=== PATIENT | male | born 1940 | race Caucasian/White ===

== ENCOUNTER → 2017-11-11 | Outpatient (CLI) | payer MEDICARE ==
--- NOTE | 2017-11-13 14:00 | NM ---
EXAMINATION TYPE: NM DatScan Brain SPECT DATE OF EXAM: 11/11/2017 COMPARISON: NONE HISTORY: Tremors TECHNIQUE: 10 drops of Lugol's solution was administered 1 hour prior to injection as a thyroid bloc zamzam agent. After the administration of 4.22 mCi I-123 Ioflupane DaTscan. Images obtained 3 hours p ost injection. SPECT images of the brain were acquired with axial and coronal reconstructions. FINDINGS: The axial SPECT images demonstrate increased background activity and reduced activity withi n the bilateral striata. Findings appear fairly symmetric. IMPRESSION: Abnormal appearance highly suggestive of idiopathic Parkinson's disease or Parkinsonian s yndrome.
== END | disposition home or self-care (01) ==
LOC: RADNMMAIN 10:36
PROVIDERS: ATTEND Psychiatry & Neurology Neurology
DX: R90.89 Other abnormal findings on diagnostic imaging of central nervous system (principal); G25.0 Essential tremor
CPT/HCPCS: 78607; A9584

== ENCOUNTER → 2020-11-15 | Outpatient (CLI) | payer MEDICARE ==
--- NOTE | 2020-11-15 20:13 | FL ---
EXAMINATION TYPE: FL barium swallow DATE OF EXAM: 11/15/2020 CLINICAL INDICATION: 80-year-old male R13.10, dysphasia. Sensation of food stuck in the throat for 4 to 5 months. Gagging episodes. COMPARISON: None Total Fluoroscopy Time: 3 minutes 18 seconds. 59 images obtained. FINDINGS: The swallowing mechanism is normal. There is moderate thickening of the cricopharyngeus causing promi nent impression onto the posterior wall of the cervical esophagus. Otherwise, the hypopharyngeal bk eddie is maintained. Thoracic portion has a normal course and caliber. Only mild tertiary peristalsis is encountered. The mucosa is normal and no persistent filling defect is encountered. There is a moderate-sized hiatal hernia. Gastroesophageal reflux could not be elicited with Valsalva or positional maneuvers. IMPRESSION: 1. Moderate CP hypertrophy. Correlate as to if this could be contributing to the patient's symptoms. Consider GI referral for direct visualization. 2. Moderate-sized hiatal hernia. Unable to elicit gastroesophageal reflux during the course of the ex am.
== END ==
LOC: RADUSWWP 10:00
PROVIDERS: ATTEND Family Medicine
DX: K44.9 Diaphragmatic hernia without obstruction or gangrene (principal); K21.9 Gastro-esophageal reflux disease without esophagitis
CPT/HCPCS: 74220

== ENCOUNTER 2020-12-17 10:01 | Day surgery (SDC) | payer MEDICARE ==
[2020-12-16 11:58] VITALS: BMI 22.8
[~2020-12-17 10:01] MED LIST: LACTATED RINGERS 1,000 ML IV SCH; LIDOCAINE 1% (10MG/ML) FOR IV START INTRADERMA PRN
[2020-12-17 10:38] VITALS: RESP 16; TEMP 97
[2020-12-17] MEDS ORDERED: PROPOFOL 10 MG/ML 20 ML VIAL IV ONE (12:25)
--- NOTE | 2020-12-17 12:42 | P.PCN ---
Date of Procedure: 12/17/20 Description of Procedure: BRIEF HISTORY: Patient is a 80-year-old male presenting for outpatient esophagogastroduodenoscopy for evaluation of difficulty swallowing and esophageal dysphagia. Patient reports intermittent symptoms over the past few months. Predominantly to solids. No prior episodes. No prior EGD. Currently not on any medications for reflux. He does feel his symptoms have improved. PROCEDURE PERFORMED: Esophagogastroduodenoscopy with biopsy. PREOPERATIVE DIAGNOSIS: Difficulty swallowing, esophageal dysphagia. ESTIMATED BLOOD LOSS: Minimal. IV sedation per anesthesia. PROCEDURE: After informed consent was obtained, the patient was brought into the endoscopy unit. IV sedation was administered by Anesthesia under continuous monitoring. Initially the Olympus GIF-190 video endoscope was inserted into the mouth. Esophagus intubated without any difficulty. It was gradually advanced into the stomach and duodenum and carefully examined. The bulb and the second part of the duodenum appeared normal, with biopsies taken. The scope at this time was wit hdrawn to the stomach, adequately insufflated with air, and upon careful examination, mucosa of the antrum, body, cardia and the fundus appeared normal, except for some mild punctate erythema in the antrum and body suggestive of mild gastritis with biopsies taken. The scope was then withdrawn into the esophagus. The GE junction was located at 38 cm from the incisors, with a small 2 cm hiatal hernia noted. The lower esophageal sphincter appeared to be slightly spastic but was easily traversed. Biopsies were taken of the lower esophagus and midesophagus given symptoms of esophageal dysphagia. The esophagus appeared normal. There were no erosions or ulcerations seen and the patient tolerated the procedure well. IMPRESSION: 1. Mild gastritis. 2. Small hiatal hernia. 3. Biopsies of the duodenum, antrum body, lower esophagus and midesophagus. RECOMMENDATIONS: The findings of this examination were discussed with the patient and his family. Okay to resume diet. Okay to resume medications. Await pathology from biopsies. If patient has return of symptoms of esophageal dysphagia may benefit from a trial of famotidine or omeprazole OTC. Otherwise, can follow up with PCP as previously scheduled.
[2020-12-17 12:46] VITALS: PULSE 60
[2020-12-17 13:02] VITALS: BP 160/83
== END 2020-12-17 13:24 | disposition home or self-care (01) ==
LOC: ORWHC2ENDO 10:01
PROVIDERS: ATTEND Internal Medicine
DX: K29.80 Duodenitis without bleeding (principal); K29.50 Unspecified chronic gastritis without bleeding; K20.0 Eosinophilic esophagitis; K44.9 Diaphragmatic hernia without obstruction or gangrene; R13.14 Dysphagia, pharyngoesophageal phase; Z98.890 Other specified postprocedural states; G20 Parkinson's disease
CPT/HCPCS: 88305; 43239; J2704

== ENCOUNTER 2021-02-13 09:28 | Day surgery (SDC) | payer MEDICARE ==
[2021-02-06 10:34] VITALS: BMI 25.8
--- NOTE | 2021-02-11 21:47 | P.GSHP ---
History of Present Illness H&P Date: 02/11/21 Chief Complaint: Prostate cancer The patient is an 80-year-old white male initially diagnosed with prostate cancer in October 2016. His PSA level at that time was 7.04, and his Mee score was 7 (3+4). He was initially managed with watchful waiting. However, his PSA level has increased to 11.5, and BETHANY reveals a left apical nodule. In view of this, he has been advised to undergo treatment. After reviewing alternative treatment options, he has elected to be treated with IMRT and androgen deprivation therapy for 6 months. He now comes for SpaceOAR implant to reduce the risk of radiation associated rectal toxicity. - Constitutional Constitutional: Denies weight gain, Denies weight loss - Gastrointestinal Gastrointestinal: Denies constipation, Denies diarrhea - Genitourinary (Male) Genitourinary: Reports nocturia Past Medical History Past Medical History: Cancer, Prostate Disorder Additional Past Medical History / Comment(s): "having a hard time swallowing certain foods", Parkinson's-takes cbd oil for treatment of tremors,. PROSTATE CANCER- History of Any Multi-Drug Resistant Organisms: None Reported Additional Past Surgical History / Comment(s): colonoscopy, EGD Past Anesthesia/Blood Transfusion Reactions: No Reported Reaction Smoking Status: Never smoker - Past Family History Mother Family Medical History: Cancer Father Family Medical History: Cancer Additional Family Medical History / Comment(s): lung Medications and Allergies Home Medications Medication Instructions Recorded Confirmed Type Cannabidiol (Cbd) [Epidiolex] 4 drops PO QAM 12/16/20 02/06/21 History Allergies Allergy/AdvReac Type Severity Reaction Status Date / Time No Known Allergies Allergy Verified 02/06/21 10:25 Surgical - Exam - General well developed, well nourished, no distress - Respiratory normal respiratory effort - Abdomen Abdomen: soft, non tender, no guarding, no rigid, no rebound - Genitourinary normal penis with no external lesions, testicles non-tender - Rectum Rectum: normal sphincter tone, no masses, other (Prostate moderately enlarged, 8 mm left apical nodule) - Psychiatric oriented to time, oriented to person, oriented to place, speech is normal, memory intact Assessment and Plan (1) Malignant neoplasm of prostate Status: Acute Code(s): C61 - MALIGNANT NEOPLASM OF PROSTATE SNOMED Code(s): 468722117 Plan: The SpaceOar implant has been reviewed in detail with the patient. He understands that the rationale for this is to create separation between the prostate and rectum, thus reducing the risk of radiation proctitis. The material begins to breakdown 12-13 weeks following implant, and is reabsorbed by the body. Risks include anesthesia, bleeding, infection, and perineal discomfort. He understands that if the rectal wall is perforated the procedure will need to be aborted.
[~2021-02-13 09:28] MED LIST changes: -LIDOCAINE 1% (10MG/ML) FOR IV START INTRADERMA PRN; +fentaNYL (PF) 50 MCG/ML 2 ML AMP IV PRN
[2021-02-13 09:57] VITALS: TEMP 96.7
[2021-02-13] MEDS ORDERED: MIDAZOLAM 2 MG/2 ML VIAL ONE (12:40)
[2021-02-13] MEDS ORDERED: fentaNYL (PF) 50 MCG/ML 2 ML AMP ONE (12:40)
[2021-02-13] MEDS ORDERED: PROPOFOL 10 MG/ML 20 ML VIAL IV ONE (12:40)
[2021-02-13] MEDS ORDERED: LIDOCAINE 2% INJ 20 MG/ML SQ ONE ×2 (12:58)
--- NOTE | 2021-02-13 13:16 | P.OP ---
Date of Procedure: 02/13/21 Preoperative Diagnosis: Adenocarcinoma of the prostate Postoperative Diagnosis: Same Procedure(s) Performed: SpaceOAR Implant Anesthesia: MAC Surgeon: Jonathon Hamm Estimated Blood Loss (ml): 5 IV fluids (ml): 150 Pathology: none sent Condition: stable Disposition: PACU Indications for Procedure: The patient is an 80-year-old white male initially diagnosed with prostate cancer in October 2016. His PSA level at that time was 7.04, and his Niles score was 7 (3+4). He was initially managed with watchful waiting. However, his PSA level has increased to 11.5, and BETHANY reveals a left apical nodule. In view of this, he has been advised to undergo treatment. After reviewing alternative treatment options, he has elected to be treated with IMRT and androgen deprivation therapy for 6 months. He now comes for SpaceOAR implant to reduce the risk of radiation associated rectal toxicity. Operative Findings: Separation created between prostate and rectum. Description of Procedure: The patient was taken to the operating room and placed in the dorsolithotomy position, with his legs supported in Ham stirrups. The external genitalia was prepped and draped sterilely. The Bruel and Kjaer transrectal ultrasound probe was placed intrarectally. The prostate was imaged. The probe was then placed within the stabilizing stand. A spinal needle was advanced under ultrasonic guidance to the level of the urogenital diaphragm, and lidocaine was used to infiltrate the tissues as the needle was withdrawn. Next, the SpaceOAR needle was passed through the midline of the perineum, 1-2 cm anterior to the anal opening. The needle was slowly advanced under ultrasonic guidance until the needle tip was located within the fat plane between the prostate and rectum, at the level of the mid prostate gland. The needle was confirmed to be midline on the axial imaging. A small amount of normal saline was injected for hydrodissection. Next, the SpaceOAR components were mixed and loaded into the Y connector per protocol. The Y connector was then connected to the needle, and the components were injected slowly over a course of approximately 12 seconds. A total of 12 ml was injected. 6-7 mm of distance was created between the prostate and rectum. It should be noted that at no point was there any concern of rectal perforation. The needle was withdrawn, as well as the transrectal ultrasound probe, and the procedure was terminated. The patient tolerated the procedure well and was taken to the recovery room in stable condition.
[2021-02-13 13:37] VITALS: BP 148/85; PULSE 64; RESP 20
== END 2021-02-13 13:46 | disposition home or self-care (01) ==
LOC: OR 09:28
PROVIDERS: ATTEND Urology
DX: C61 Malignant neoplasm of prostate (principal); G20 Parkinson's disease
CPT/HCPCS: 55874; C1889; J2001; J2250; J0690; J3010; J2704

== ENCOUNTER → 2021-03-19 | Outpatient (CLI) | payer MEDICARE | END | disposition home or self-care (01) | LOC: LABWHC1 12:12 | PROVIDERS: ATTEND Radiology Radiation Oncology | DX: C61 Malignant neoplasm of prostate (principal); R97.20 Elevated prostate specific antigen [PSA]; R35.1 Nocturia | CPT/HCPCS: 36415; 84153 ==

== ENCOUNTER → 2022-10-27 | Outpatient (CLI) | payer MEDICARE | END | disposition home or self-care (01) | LOC: RADCTMAIN 16:17 | PROVIDERS: ATTEND Urology | DX: D41.01 Neoplasm of uncertain behavior of right kidney (principal) | CPT/HCPCS: 82565; 84520 ==

== ENCOUNTER → 2022-11-24 | Outpatient (CLI) | payer MEDICARE ==
--- NOTE | 2022-11-24 20:30 | US ---
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 No hydronephrosis. Left Kidney: No hydronephrosis or masses seen Bladder: wnl Bilateral Jets seen: yes IMPRESSION: 1. No hydronephrosis. 2. Tiny 1 cm right kidney mid pole cortical lesion. Suspect a tiny cyst with internal echoes represen ting debris or artifact. Recommend 6 month follow-up ultrasound to reassess.
== END | disposition home or self-care (01) ==
LOC: RADUSWWP 15:09
PROVIDERS: ATTEND Urology
DX: D41.01 Neoplasm of uncertain behavior of right kidney (principal); N28.89 Other specified disorders of kidney and ureter
CPT/HCPCS: 76770

== ENCOUNTER → 2022-11-27 | Outpatient (CLI) | payer MEDICARE ==
--- NOTE | 2022-12-02 23:27 | HM ---
HOLTER MONITOR REPORT STUDY PERFORMED: 24-hour Holter. FINDINGS: No diary was provided. Predominant rhythm appears to be sinus with a heart rate that ranged from 57 to 87 beats per minute with average heart rate of 67 beats per minute. Rare isolated PACs and PVCs were noted without any significant evidence of bradyarrhythmia. FINAL IMPRESSION: Predominant sinus rhythm with sinus bradycardia, average heart rate of about 67 beats per minute. No diary was provided. Rare isolated PACs and PVCs. No significant arrhythmia. MMODL / IJN: [id number] /
== END | disposition home or self-care (01) ==
LOC: RADECHMAIN 07:25
PROVIDERS: ATTEND Family Medicine
DX: C61 Malignant neoplasm of prostate (principal); N18.31 Chronic kidney disease, stage 3a; G20 Parkinson's disease; K21.9 Gastro-esophageal reflux disease without esophagitis; R94.31 Abnormal electrocardiogram [ECG] [EKG]; R10.31 Right lower quadrant pain
CPT/HCPCS: 93225; 93226

== ENCOUNTER → 2023-11-23 | Outpatient (CLI) | payer MEDICARE ==
--- NOTE | 2023-11-24 14:00 | US ---
EXAMINATION TYPE: US kidneys/renal and bladder DATE OF EXAM: 11/23/2023 COMPARISON: US 2022 CLINICAL INDICATION: Male, 83 years old with history of D41.01 Renal mass on right; EXAM MEASUREMENTS: Right Kidney: 9.8 x 4.1 x 4.1 cm Left Kidney: 9.9 x 4.8 x 5.3 cm Right Kidney: 1.2 x 1.0 x 1.1cm hypoechoic area lateral mid pole Left Kidney: 2.0 x 2.0 x 1.5cm cystic area lateral inferior pole, 1.7 x 1.2 x 1.1cm hypoechoic area l ateral mid pole Bladder: not fully distended, appears wnl as seen Bilateral Jets seen: no IMPRESSION: Small cortical renal cysts.
== END | disposition home or self-care (01) ==
LOC: RADUSWWP 09:27
PROVIDERS: ATTEND Urology
DX: C61 Malignant neoplasm of prostate (principal); D41.01 Neoplasm of uncertain behavior of right kidney; N28.1 Cyst of kidney, acquired
CPT/HCPCS: 36415; 76770; 84153